=== PATIENT | male | born 1980 | race Caucasian/White ===

== ENCOUNTER → 2020-07-17 | Day surgery (SDC) | payer OTHER ==
[~2020-07-17] MED LIST: 0.9 % SODIUM CHLORIDE 50 ML VIAL. IJ ONE; DEXAMETHASONE SOD PHOS 10 MG/ML VIAL. ONE; IOHEXOL 300 MG/ML 50 ML VIAL. ONE; LIDOCAINE 1% PF 30 ML VIAL. ONE
[2020-07-17 13:41] VITALS: BP 150/97
== END | disposition home or self-care (01) ==
LOC: EDBD 12:45 → SURG 12:53
PROVIDERS: ATTEND Anesthesiology
DX: M54.12 Radiculopathy, cervical region (principal); I10 Essential (primary) hypertension; M50.30 Other cervical disc degeneration, unspecified cervical region; Z88.8 Allergy status to other drugs, medicaments and biological substances; Z79.899 Other long term (current) drug therapy
CPT/HCPCS: 62321; 72275; J1100; Q9967

== ENCOUNTER → 2020-12-11 | Day surgery (SDC) | payer OTHER ==
[~2020-12-11] MED LIST changes: +0.9 % SODIUM CHLORIDE 10 ML VIAL. ONE; -0.9 % SODIUM CHLORIDE 50 ML VIAL. IJ ONE; +BUPR100T8 PO; +DISU250T PO
[2020-12-11 10:44] VITALS: BP 147/72
== END | disposition home or self-care (01) ==
LOC: SURG 09:47
PROVIDERS: ATTEND Anesthesiology
DX: M54.12 Radiculopathy, cervical region (principal); M54.2 Cervicalgia; I10 Essential (primary) hypertension; Z98.890 Other specified postprocedural states; Z79.899 Other long term (current) drug therapy
CPT/HCPCS: 62321; J1100; Q9967

== ENCOUNTER → 2021-01-01 | Day surgery (SDC) | payer OTHER ==
[~2021-01-01] MED LIST changes: +BUPIVACAINE MPF 0.25% 10 ML VIAL. ONE
--- NOTE | 2021-01-01 14:15 | NUR ---
patient return from injection with tingling in perineal area, feels slightly dizzy, and appears uncomfortable. See vital signs.
[2021-01-01 14:20] VITALS: BP 148/93
== END | disposition home or self-care (01) ==
LOC: SURG 12:32
PROVIDERS: ATTEND Anesthesiology
DX: M50.10 Cervical disc disorder with radiculopathy, unspecified cervical region (principal); I10 Essential (primary) hypertension; Z79.899 Other long term (current) drug therapy; Z98.890 Other specified postprocedural states
CPT/HCPCS: 62321; J1100; J3490; Q9967

== ENCOUNTER 2021-01-18 16:55 | Emergency (ER) | payer OTHER ==
[~2021-01-18] VITALS: Ht 188 cm; Wt 118.0 kg
[~2021-01-18 16:55] MED LIST changes: -0.9 % SODIUM CHLORIDE 10 ML VIAL. ONE; -BUPIVACAINE MPF 0.25% 10 ML VIAL. ONE; -DEXAMETHASONE SOD PHOS 10 MG/ML VIAL. ONE; -IOHEXOL 300 MG/ML 50 ML VIAL. ONE; -LIDOCAINE 1% PF 30 ML VIAL. ONE
[2021-01-18] MEDS ORDERED: OXYC1TAB15 PO ×2 (17:57→18:26)
--- NOTE | 2021-01-18 17:58 | PHYS DOC ---
Adult General Chief Complaint Chief Complaint: BACK PAIN OR INJURY HPI HPI Patient is a 40-year-old male presents emergency department with chief complaint of exacerbation of chronic low back pain after moving items in his home yesterday. Patient denies urinary retention, loss of bowel or bladder, numbness or tingling to his buttocks or genitals. Patient denies other physical complaints or physical concerns. (MITUL SCHUSTER APRN) Review of Systems Review of Systems 14 body systems of review of systems have been reviewed. See HPI for pertinent positives and negative responses, otherwise all other systems are negative, nonpertinent or noncontributory. Constitutional: Negative except as outlined in HPI above. Skin: Negative except as outlined in HPI above. Eyes: Negative except as outlined in HPI above. HENT: Negative except as outlined in HPI above. Respiratory: Negative except as outlined in HPI above. Cardiovascular: Negative except as outlined in HPI above. GI: Negative except as outlined in HPI above. : Negative except as outlined in HPI above. Musculoskeletal: Negative except as outlined in HPI above. Integument: Negative except as outlined in HPI above. Neurologic: Negative except as outlined in HPI above. Endocrine: Negative except as outlined in HPI above. Lymphatic: Negative except as outlined in HPI above. Psychiatric: Negative except as outlined in HPI above. (MITUL SCHUSTER APRN) Allergies Allergies Allergies Coded Allergies Type Severity Reaction Last Updated Verified meperidine Allergy Unknown rash 01/01/21 Yes naltrexone Allergy Unknown depression 01/01/21 Yes sertraline Allergy Unknown Anxiety, paranoia 01/01/21 Yes (MITUL SCHUSTER APRN) Physical Exam Physical Exam Constitutional: Well developed, well nourished, no acute distress, non-toxic appearance. 40-year-old male in no apparent distress. HENT: Normocephalic, atraumatic. Eyes: Conjunctiva normal, no discharge. Neck: Normal range of motion, no stridor. Cardiovascular: No cyanosis appreciated, distal cap refill less than 2 seconds. Lungs & Thorax: Patient is in no respiratory distress, no audible adventitious lung sounds appreciated. Abdomen: Nontender, no abnormalities noted. Skin: Warm, dry, no erythema, no rash. Back: No deformities appreciated, tenderness to palpation to midline lumbar area. No radiation of pain appreciated. Patient moves lower extremities well, ambulates with steady gait. Extremities: No tenderness, no cyanosis, no clubbing, ROM intact, no edema. Neurologic: Alert and oriented X 3, normal motor function, normal sensory function, no focal deficits noted. Psychologic: Affect normal, judgement normal, mood normal. (MITUL SCHUSTER APRN) EKG EKG [] (MITUL SCHUSTER APRN) Radiology/Procedures Radiology/Procedures [] (MITUL SCHUSTER APRN) Heart Score C/O Chest Pain: No Risk Factors: Risk Factors: DM, Current or recent (<one month) smoker, HTN, HLP, family history of CAD, obesity. Risk Scores: Risk Factors: DM, Current or recent (<one month) smoker, HTN, HLP, family history of CAD, obesity. (MITUL SCHUSTER APRN) Course & Med Decision Making Course & Med Decision Making Pertinent Labs and Imaging studies reviewed. (See chart for details) 40-year-old male, vital signs reviewed, presents emergency department concerning acute exacerbation of old injury of low back. Physical examination consistent with lumbago, will treat with IM injection of Toradol, home with prescription for pain medication, strict follow-up with primary care. Patient is amenable to ED discharge planning. Discussed with the patient all findings and diagnostic testing as well as the need to follow-up with their primary care provider for further evaluation and treatment or return to the ED if any new or worsening symptoms. Strict return precautions were also discussed at length, the patient voiced understanding and agreement with the discharge planning. The patient was nontoxic in appearance, in no apparent distress, and hemodynamically stable at the time of disposition. (MITUL SCHUSTER APRN) Dragon Disclaimer Dragon Disclaimer This electronic medical record was generated, in whole or in part, using a voice recognition dictation system. (MITUL SCHUSTER APRN) Departure Departure: Impression: Primary Impression: Lumbago Disposition: HOME / SELF CARE / HOMELESS Condition: GOOD Referrals: GABRIEL VALERA (PCP) Patient Instructions: Back Pain, Adult Additional Instructions: You are seen today in the emergency department for exacerbation of your chronic low back pain. You were given a Toradol injection in the emergency department today. I am prescribing you pain medication at home please take as directed. Please keep your follow-up appointments with your primary care physician Dr. Valera at the [facility]. Return to the emergency department for worsening symptoms or other concerns. Thank you for visiting our Emergency Department. It was a pleasure taking care of you today in the emergency department and we appreciate you trusting us with your care. If any additional problems come up don't hesitate to return to visit us. Please follow up with your primary care provider so they can plan additional care if needed and know about the problem that you had. If symptoms worsen come back to the Emergency Department. Any concerning symptoms that start such as chest pain, shortness of air, weakness or numbness on one side of the body, running high fevers or any other concerning symptoms return to the ER. Scripts Oxycodone Hcl/Acetaminophen (PERCOCET 5-325 MG TABLET ) 1 Each Tablet 1 TAB PO PRN BID PRN for SEVERE PAIN 7-10 MDD 2 Tablet(s) for 5 Days, #10 TAB 0 Refills Prov: MITUL SCHUSTER APRN 01/18/21 Attending Signature Attending Signature I have participated in the care of this patient and I have reviewed and agree w ith all pertinent clinical information above including history, exam, and recommendations. (MOSHE NEWSOME MD) Problem Qualifiers Primary Impression: Lumbago Chronicity: acute Back pain laterality: midline Sciatica presence: without sciatica Qualified Codes: M54.50 - Low back pain, unspecified MITUL SCHUSTER APRN Jan 18, 2021 17:58 MOSHE NEWSOME MD Jan 19, 2021 17:11
[2021-01-18] MEDS ORDERED: KETOROLAC 60 MG/2 ML VIAL. IM ONE (18:00)
[2021-01-18 18:13] VITALS: BP 167/103
== END 2021-01-18 18:23 | disposition home or self-care (01) ==
LOC: ER 16:55
DX: M54.50 Low back pain, unspecified (principal)
CPT/HCPCS: 96372; 99283; J1885

== ENCOUNTER 2021-07-08 15:17 | Emergency (ER) | payer OTHER ==
[~2021-07-08] VITALS: Ht 188 cm; Wt 118.0 kg
[~2021-07-08 15:17] MED LIST changes: +BUPR100T16 PO; -BUPR100T8 PO; -DISU250T PO; +DISU250T12 PO; +OXYC1TAB15 PO
[2021-07-08 15:37] VITALS: BP 139/100
[2021-07-08] MEDS ORDERED: OXYC1TAB15 PO (15:56)
[2021-07-08] MEDS ORDERED: PRED20TA PO (15:56)
--- NOTE | 2021-07-08 15:58 | PHYS DOC ---
Past History Past Medical History: No Pertinent History Past Surgical History: Other Additional Past Surgical Histo: L5-S1 fusion Smoking: Non-smoker, Chew Alcohol Use: None Drug Use: None General Adult EDM: Chief Complaint: BACK PAIN - NO INJURY HPI: HPI: Pt is a 40 yo M who presents via private vehicle c/o worsening back pain over the last 2 days. He lifted something "heavy" in the yard 2 days ago and has had pain ever since. Pt denies numbness/tingling/weakness. Pt has a hx of L5-S1 fusion and has had worsening pain over the last 6 months. He recently had an MRI and is scheduled to see his neurosurgeon at the end of this month. Denies loss of bowel or bladder. No other complaints at this time. Review of Systems: Review of Systems: Constitutional: Denies fever or chills Eyes: Denies redness or eye pain HENT: Denies nasal congestion or sore throat Respiratory: Denies cough or shortness of breath Cardiovascular: Denies chest pain or palpitations GI: Denies abdominal pain, nausea, or vomiting : Denies dysuria or hematuria Musculoskeletal: Denies joint pain; Reports back pain Integument: Denies rash or skin lesions Neurologic: Denies headache, focal weakness or sensory changes; denies loss of bowel or bladder Complete systems were reviewed and found to be within normal limits, except as documented in this note. Current Medications: Current Meds: Current Medications Medications (Trade) Dose Ordered Sig/Marcus Start Time Stop Time Status Last Admin Dose Admin Dexamethasone (Decadron) 10 mg 1X ONCE 07/08/21 16:00 07/08/21 16:01 UNV Ketorolac Tromethamine (Toradol 30mg Vial) 30 mg 1X ONCE 07/08/21 16:00 07/08/21 16:01 UNV Allergies: Allergies: Allergies Coded Allergies Type Severity Reaction Last Updated Verified meperidine Allergy Unknown rash 01/01/21 Yes naltrexone Allergy Unknown depression 01/01/21 Yes sertraline Allergy Unknown Anxiety, paranoia 01/01/21 Yes Physical Exam: PE: Constitutional: Well developed, well nourished, no acute distress, non-toxic appearance HENT: Normocephalic, atraumatic Eyes: Conjunctiva normal, no discharge Neck: Normal range of motion, no tenderness, supple Lungs & Thorax: No respiratory distress, equal chest rise and fall Abdomen: Soft, no tenderness Skin: Warm, dry, no erythema, no rash Back: R lumbar paraspinal tenderness, no midline spinal tenderness, no CVA tenderness Extremities: No tenderness, ROM intact, no edema Neurologic: Alert and oriented X 3, normal motor function, normal sensory function, no focal deficits noted Psychologic: Affect normal, judgment normal Current Patient Data: Vital Signs: Vital Signs Date Time Temp Pulse Resp B/P (MAP) Pulse Ox O2 Delivery O2 Flow Rate FiO2 07/08/21 15:37 98.0 76 16 139/100 (113) 97 Room Air EKG: EKG: [] Radiology/Procedures: Radiology/Procedures: [] Heart Score: C/O Chest Pain: N/A Course & Med Decision Making: Course & Med Decision Making Patient presents with HPI and physical exam consistent for acute on chronic low back pain. No known trauma. Denies loss of bowel or bladder. Denies fever. Pt given steroids and toradol. DC with Rx for 10 tablets of 5/325 mg Percocet and continued steroidburst therapy. Patient stable for discharge with outpatient follow-up with PCP/back surgeon. Discussed findings and plan with patient, who acknowledges understanding and agreement. Chris Disclaimer: Dot Medical Disclaimer: This electronic medical record was generated, in whole or in part, using a voice recognition dictation system. Departure Departure: Impression: Primary Impression: Acute exacerbation of chronic low back pain Disposition: HOME / SELF CARE / HOMELESS Condition: STABLE Referrals: GABRIEL VALERA (PCP) Patient Instructions: Chronic Back Pain Additional Instructions: Follow closely with your neurosurgeon for further evaluation and treatment. Scripts Oxycodone Hcl/Acetaminophen (PERCOCET 5-325 MG TABLET ) 1 Each Tablet 0.5-1 TAB PO PRN Q6HRS PRN for PAIN, #10 TAB Prov: MITUL VASQUES DO 07/08/21 Prednisone (PREDNISONE) 20 Mg Tablet 2 TAB PO DAILY for Back pain for 4 Days, #8 TAB Prov: MITUL VASQUES DO 07/08/21 MITUL VASQUES DO Jul 08, 2021 15:58
[2021-07-08] MEDS ORDERED: KETOROLAC 30 MG/ML VIAL. IM ONE (16:00)
[2021-07-08] MEDS ORDERED: DEXAMETHASONE 4 MG TABLET PO ONE (16:00)
== END 2021-07-08 16:16 | disposition home or self-care (01) ==
LOC: ER 15:17
DX: G89.29 Other chronic pain (principal); M54.59 Other low back pain; F17.220 Nicotine dependence, chewing tobacco, uncomplicated; Z88.8 Allergy status to other drugs, medicaments and biological substances
CPT/HCPCS: 96372; 99283; J1885; J8540

== ENCOUNTER 2021-08-09 15:05 | Emergency (ER) | payer OTHER ==
[~2021-08-09] VITALS: Ht 188 cm; Wt 117.0 kg
[~2021-08-09 15:05] MED LIST changes: +PRED20TA PO
--- NOTE | 2021-08-09 15:31 | PHYS DOC ---
Past History Past Medical History: No Pertinent History Past Surgical History: Other Additional Past Surgical Histo: L5-S1 fusion Smoking: Non-smoker, Chew Alcohol Use: None Drug Use: None General Adult EDM: Chief Complaint: BACK PAIN OR INJURY HPI: HPI: Patient is a 40-year-old male here with low back pain. He reports his symptoms began after he was lifting a heavy cabinet. He is in the process of moving to a new home. He denies any direct trauma or injury. Denies radiation of pain. He denies numbness, tingling, focal motor weakness. He denies abdominal pain, he denies urinary symptoms, he denies bowel or bladder incontinence. Denies fevers or chills. He denies dizziness or syncope. He has chronic back pain, he has had previous back surgery. He has a neurosurgeon that he sees through the [facility]. He also has a PCP through the [facility]. He saw his neurosurgeon within the last week, he is scheduled to have an outpatient CT soon. He reports that he took Tylenol with no relief. He takes methocarbamol as well, he reports little relief with t his. He does not routinely take NSAID medication secondary to what sounds like GI bleeding history. Review of Systems: Review of Systems: Constitutional: Denies fever or chills HENT: Denies nasal congestion or sore throat Respiratory: Denies cough or shortness of breath Cardiovascular: Denies chest pain or edema GI: Denies abdominal pain, nausea, vomiting, or diarrhea. Denies incontinence of stool. : Denies urinary symptoms or urine incontinence. Musculoskeletal: Diffuse low back pain. Integument: Denies rash Neurologic: Denies headache, focal weakness or sensory changes, denies dizziness, numbness or tingling. Psychiatric: Denies depression or anxiety Allergies: Allergies: Allergies Coded Allergies Type Severity Reaction Last Updated Verified meperidine Allergy Unknown rash 01/01/21 Yes naltrexone Allergy Unknown depression 01/01/21 Yes sertraline Allergy Unknown Anxiety, paranoia 01/01/21 Yes Physical Exam: PE: Constitutional: Well developed, well nourished, no acute distress, non-toxic appearance. [] HENT: Normocephalic, atraumatic Eyes: Sclera anicteric, conjunctive a normal Neck: Normal range of motion, no tenderness, supple, no stridor. [] Cardiovascular:Heart rate regular rhythm, +2 radial and +2 posterior tibial pulses bilateral Lungs & Thorax: Bilateral breath sounds clear to auscultation [] Abdomen: Abdomen is obese, soft, nondistended, nontender to palpation. No CVA tenderness. No palpable masses organomegaly. No flank or abdominal ecchymoses. No palpable pulsatile mass. Skin: Warm, dry, no erythema, no rash. [] Back: Full range of motion. No midline tenderness or step-offs. No deformity. No CVA tenderness. Pain is reproduced with active flexion and rotation of the spine. Extremities: No tenderness, no cyanosis, no clubbing, ROM intact, no edema. No calf tenderness. Neurologic: Alert and oriented X 3, normal motor function, normal sensory function, no focal deficits noted. 5 out of 5 motor strength all 4 extremities. Gait is steady and nonantalgic. No gait ataxia. No limb ataxia. No foot drop. Sensation is grossly intact, speech is clear and fluent. Psychologic: Affect normal, judgement normal, mood normal. [] EKG: EKG: [] Radiology/Procedures: Radiology/Procedures: [] Heart Score: C/O Chest Pain: No Risk Factors: Risk Factors: DM, Current or recent (<one month) smoker, HTN, HLP, family history of CAD, obesity. Risk Scores: Score 0 - 3: 2.5% MACE over next 6 weeks - Discharge Home Score 4 - 6: 20.3% MACE over next 6 weeks - Admit for Clinical Observation Score 7 - 10: 72.7% MACE over next 6 weeks - Early Invasive Strategies Course & Med Decision Making: Course & Med Decision Making Pertinent Labs and Imaging studies reviewed. (See chart for details) IM Toradol is given for pain. 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 He has plenty of methocarbamol at home. He has Lidoderm patches as well. I explained I would give him a one-time prescription for small number of [place]. He needs to obtain any further opioid or controlled medications from his primary care physician or neurosurgeon. I explained that the emergency department does not routinely refill opioids or controlled substances for chronic pain issues. No indication for emergent imaging or further invasive exams at this time. No red flag signs or symptoms. He has a nonfocal neurologic exam. Strict return precautions are given. He verbalizes unde rstanding. Chris Disclaimer: Chris Disclaimer: This electronic medical record was generated, in whole or in part, using a voice recognition dictation system. Departure Departure: Impression: Primary Impression: Acute exacerbation of chronic low back pain Disposition: HOME / SELF CARE / HOMELESS Condition: STABLE Referrals: GABRIEL VALERA (PCP) Patient Instructions: Back Exercises, Back Pain, Adult Additional Instructions: Use the medication as needed/as directed. Return for acute injury or trauma, temperature 100.4 or higher, uncontrolled vomiting, severe dizziness, incontinence of bowel or bladder function, severe abdominal pain, focal motor weakness or any other concerns. Keep your scheduled appointment with your primary care physician and your neurosurgeon. Scripts Hydrocodone Bit/Acetaminophen (HYDROCODONE-APAP 5-325 ) 1 Each Tablet 1 TAB PO PRN Q6HRS PRN for PAIN, #10 TAB 0 Refills Prov: ROBBY MANCERA DO 08/09/21 ORBBY MANCERA DO August 09, 2021 15:31
[2021-08-09] MEDS ORDERED: KETOROLAC 60 MG/2 ML VIAL. IM ONE (15:45)
[2021-08-09 16:00] LABS: BACTERIA,URINE 0 /HPF (0-FEW); CLARITY,URINE CLEAR; COLOR,URINE YELLOW; GLUCOSE,URINE NEG (NEG); NITRITE,URINE NEG (NEG); RBC,URINE 0 /HPF (0-2); UROBILINOGEN,URINE 0.2 mg/dL (0.2 mg/dL); WBC,URINE 0 /HPF (0-4)
[2021-08-09] MEDS ORDERED: HYDR-2155 PO (16:06)
[2021-08-09 16:25] VITALS: BP 136/86
== END 2021-08-09 16:30 | disposition home or self-care (01) ==
LOC: ER 15:05
DX: G89.29 Other chronic pain (principal); M54.59 Other low back pain; F17.220 Nicotine dependence, chewing tobacco, uncomplicated; Z88.8 Allergy status to other drugs, medicaments and biological substances
CPT/HCPCS: 81001; 96372; 99283; J1885